=== PATIENT | male | born 1985 | race Caucasian/White ===

== ENCOUNTER 2019-10-02 13:14 | Emergency (ER) | payer SELFPAY ==
[~2019-10-02] VITALS: Ht 167.6 cm; Wt 68.0 kg
--- NOTE | 2019-10-02 13:20 | NUR ---
[id number] from streets, asking for ativan and water. pt is agitated while being triage. states "im dehydrated". to ER bed 9, hooked to monitor, awaiting MD doss.
--- NOTE | 2019-10-02 14:02 | NUR ---
DR RODRÍGUEZ AT BEDSIDE
[2019-10-02] MEDS ORDERED: clonazePAM 1 MG TABLET ONE (14:08)
[2019-10-02] MEDS ORDERED: LORAZEPAM 1 MG TABLET ONE ×2 (14:09→22:46)
[2019-10-02] MEDS ORDERED: PANTOPRAZOLE 40 MG TABLET.DR PO ONE ×2 (14:27→14:30)
[2019-10-02] MEDS ORDERED: clonazePAM 1 MG TABLET PO ONE (14:30)
[2019-10-02] MEDS ORDERED: OMEPRAZOLE 20 MG CAPSULE.DR PO ONE (14:30)
[2019-10-02] MEDS ORDERED: LORAZEPAM 1 MG TABLET PO ONE ×2 (14:30→23:00)
--- NOTE | 2019-10-02 14:46 | NUR ---
PATIENT REQUESTS FOR PAIN MEDICATION FOR R RIB, OFFERED PATIENT TORADOL 30MG IV, PATIENT REFUSED. PATIENT REQUESTES PERCOCET. MD REFUSES TO GIVE PATIENT PERCOCET.
--- NOTE | 2019-10-02 14:52 | NUR ---
security at bedside to assist patient outside facility
--- NOTE | 2019-10-02 14:57 | NUR ---
PATIENT THREATENED ER EMT, BECAME VERBALLY AND PHYSICALLY AGGRESSIVE. CALLED DAWNA GARCIA.
--- NOTE | 2019-10-02 14:59 | NUR ---
PATIENT DOES NOT WANT TO GO DESPITE SECURITY SPEAKING TO HIM, CALLED [employer].
--- NOTE | 2019-10-02 15:55 | NUR ---
[employer] AT BEDSIDE
[2019-10-02] MEDS ORDERED: LORAZEPAM INJ 2 MG/ML VIAL ONE (17:28)
[2019-10-02] MEDS ORDERED: LORAZEPAM INJ 2 MG/ML VIAL IM ONE (17:30)
--- NOTE | 2019-10-02 17:49 | NUR ---
PATIENT IN BED ASLEEP, EASILY AROUSABLE BY VOICE. HOOKED TO MONITOR, WILL CONTINUE TO MONITOR ACCORDINGLY.
--- NOTE | 2019-10-02 19:21 | NUR ---
PATIENT IN BED ASLEEP, EASILY AROUSABLE BY VOICE. HOOKED TO MONITOR, WILL CONTINUE TO MONITOR ACCORDINGLY.
--- NOTE | 2019-10-02 19:26 | NUR ---
REPORT GIVEN TO ANGELY MARCUS RN FOR SIMÓN
[2019-10-02] MEDS ORDERED: HYDROCODONE/APAP 5/325MG 1 EACH TABLET ONE (22:36)
[2019-10-02 22:50] VITALS: BP 119/79
--- NOTE | 2019-10-02 22:50 | NUR ---
Patient discharged to home in stable condition. Written and verbal after care instructions given. Patient verbalizes understanding of instruction.Pt ambulatory with a steady gait
[2019-10-02] MEDS ORDERED: HYDROCODONE/APAP 5/325MG 1 EACH TABLET PO ONE (23:00)
== END 2019-10-02 22:50 | disposition home or self-care (01) ==
LOC: EDBD 13:18 → ER 13:18
DX: F41.9 Anxiety disorder, unspecified (principal); F19.90 Other psychoactive substance use, unspecified, uncomplicated; F17.200 Nicotine dependence, unspecified, uncomplicated; Z88.1 Allergy status to other antibiotic agents; Z88.8 Allergy status to other drugs, medicaments and biological substances
CPT/HCPCS: 96372; 99285; J2060

== ENCOUNTER 2019-10-03 19:15 | Emergency (ER) | payer SELFPAY ==
[~2019-10-03] VITALS: Ht 167.6 cm; Wt 63.5 kg
[2019-10-03 19:22] VITALS: BP 138/88
[2019-10-03] MEDS ORDERED: clonazePAM 1 MG TABLET ONE (19:51)
[2019-10-03] MEDS ORDERED: HYDROCODONE/APAP 10/325MG 1 EA TABLET ONE (19:52)
[2019-10-03] MEDS ORDERED: LORAZEPAM 1 MG TABLET ONE (19:52)
[2019-10-03] MEDS ORDERED: clonazePAM 1 MG TABLET PO ONE (20:00)
[2019-10-03] MEDS ORDERED: HYDROCODONE/APAP 10/325MG 1 EA TABLET PO ONE (20:00)
[2019-10-03] MEDS ORDERED: LORAZEPAM 1 MG TABLET PO ONE (20:00)
--- NOTE | 2019-10-03 20:00 | NUR ---
Patient eloped from facility. ER MD notified.
== END 2019-10-03 20:02 | disposition left against medical advice (07) ==
LOC: ER 19:15
DX: M25.571 Pain in right ankle and joints of right foot (principal); R07.89 Other chest pain; R07.81 Pleurodynia; G89.29 Other chronic pain; R56.9 Unspecified convulsions; R45.1 Restlessness and agitation; Z88.1 Allergy status to other antibiotic agents; Z88.8 Allergy status to other drugs, medicaments and biological substances

== ENCOUNTER 2020-07-06 12:40 | Emergency (ER) | payer OTHER ==
[~2020-07-06] VITALS: Ht 170.2 cm; Wt 85.7 kg
[2020-07-06] MEDS ORDERED: LORAZEPAM 1 MG TABLET PO ONE (13:00)
[2020-07-06] MEDS ORDERED: LEVETIRACETAM (500MG) 500 MG in IV NS 0.9% 100 ML IV SCH (13:00)
[2020-07-06] MEDS ORDERED: LORAZEPAM 1 MG TABLET ONE (13:05)
--- NOTE | 2020-07-06 13:09 | NUR ---
senait, from [facility],patient states 'i had seizure x 2 this morning, missed my ativan and klonopin this morning, and c/o left rib pain. On room air, breathing evenly and unlabored. Connected tot he monitor and pulse ox. kept comfortable, will continue to monitor accordingly.
--- NOTE | 2020-07-06 13:17 | NUR ---
JORGE GARCIA AT BEDSIDE FOR EKG
--- NOTE | 2020-07-06 13:20 | NUR ---
PATIENT REFUSED KEPPRA 500MG IVNS 0.9% 100ML BAG, PATIENT STATES "I TOOK 1000MG KEPPRA THIS MORNING". MADE MD AWARE
[2020-07-06 13:23] LABS: BASOPHILS % (AUTO) 0.7 % (0.0-2.0); EOSINOPHILS % (AUTO) 3.3 % (0.0-6.0); HEMATOCRIT 41 % (39-51); HEMOGLOBIN 13.7 g/dL (13.5-17.5); LYMPHOCYTES # (AUTO) 1.6 /CMM (0.8-4.8); LYMPHOCYTES % (AUTO) 23.7 % (20.0-44.0); MEAN CORPUSCULAR HGB CONC 34 g/dl (31.0-36.0); MEAN CORPUSCULAR VOLUME 94 fL (80-96); MONOCYTES # (AUTO) 0.6 /CMM (0.1-1.30); MONOCYTES % (AUTO) 8.2 % (2.0-12.0); NEUTROPHILS # (AUTO) 4.3 /CMM (1.8-8.9); NEUTROPHILS % (AUTO) 64.1 % (43.0-81.0); PLATELET COUNT (AUTO) 149 /CMM (150-450); RED BLOOD CELL COUNT(AUTO) 4.35 MIL/uL (4.5-6.0); WHITE BLOOD COUNT (AUTO) 6.8 K/uL (4.3-11.0)
[2020-07-06 13:25] LABS: CALCIUM, SERUM 8.6 mg/dL (8.5-10.1); CREATININE 0.8 mg/dL (0.6-1.3); POTASSIUM 3.9 mmol/L (3.5-5.1)
[2020-07-06 14:44] VITALS: BP 122/61
--- NOTE | 2020-07-06 14:44 | NUR ---
patient discharge in custody accompanied by in no distress.
== END 2020-07-06 14:44 ==
LOC: ER 12:43
DX: S22.32XA Fracture of one rib, left side, initial encounter for closed fracture (principal); G40.909 Epilepsy, unspecified, not intractable, without status epilepticus; F10.10 Alcohol abuse, uncomplicated; F17.200 Nicotine dependence, unspecified, uncomplicated; Y90.0 Blood alcohol level of less than 20 mg/100 ml; Z02.89 Encounter for other administrative examinations; Z88.1 Allergy status to other antibiotic agents; Z88.8 Allergy status to other drugs, medicaments and biological substances; X58.XXXA Exposure to other specified factors, initial encounter; Y93.89 Activity, other specified; Y92.89 Other specified places as the place of occurrence of the external cause; Y99.8 Other external cause status
CPT/HCPCS: 36415; 71100; 80048; 80320; 84484; 85025; 93005; 99285; J7030; G0480; J1953

== ENCOUNTER 2020-09-30 06:30 | Emergency (ER) | payer OTHER ==
[~2020-09-30] VITALS: Ht 170.2 cm; Wt 93.9 kg
--- NOTE | 2020-09-30 06:38 | NUR ---
URINE COLLECTED, CALLED LAB FOR YARD ASSISTANT
--- NOTE | 2020-09-30 06:40 | NUR ---
PT FRANCISCO REQUESTING FOR MEDICATION REFILL. PT STATES "I JUST GOT OUT OF SENIOR LIVING YESTERDAY AND NEED MY MEDICATIONS. I ALSO NEED TO BE SENT TO A FACILITY BECAUSE I DON'T FEEL RIGHT." WHEN ASKED IF PATIENT IS SUICIDAL/HOMICIDAL PT STATES "I JUST NEED MY MEDS". PT AAOX4, CALM AND COOPERATIVE. RESPIRATIONS EVEN AND UNLABORED. VITAL SIGNS STABLE. AMBULATORY WITH STEADY GAIT. NO ACUTE DISTRESS NOTED AT THIS TIME. WILL CONTINUE TO MONITOR
--- NOTE | 2020-09-30 06:45 | NUR ---
AT BEDSIDE FOR EVAL
--- NOTE | 2020-09-30 06:55 | NUR ---
PT C/O SI WITH PLAN TO "TAKE MY FRIEND'S GUN AND SHOOT MYSELF". SUICIDAL PRECAUTIONS INITIATED. PT PLACED IN GOWN, BELONGINGS COLLECTED AND LOCKED IN PATIENT LOCKER. SITTER AT BEDSIDE. WLL CONTINUE TO MONITOR
[2020-09-30] MEDS ORDERED: clonazePAM 1 MG TABLET PO ONE (07:00)
[2020-09-30] MEDS ORDERED: PANTOPRAZOLE 40 MG TABLET.DR PO ONE ×2 (07:00→07:16)
[2020-09-30] MEDS ORDERED: DIVALPROEX SODIUM 500 MG TABLET.DR PO ONE ×2 (07:00→07:16)
[2020-09-30] MEDS ORDERED: LORAZEPAM 1 MG TABLET PO ONE ×2 (07:00→13:30)
--- NOTE | 2020-09-30 07:01 | NUR ---
TABLE TOP TILE SETTER AT BEDSIDE FOR BLOOD DRAW
[2020-09-30 07:16] LABS: BASOPHILS % (AUTO) 0.7 % (0.0-2.0); EOSINOPHILS % (AUTO) 1.4 % (0.0-6.0); HEMATOCRIT 42 % (39-51); HEMOGLOBIN 14.3 g/dL (13.5-17.5); LYMPHOCYTES # (AUTO) 1.4 /CMM (0.8-4.8); LYMPHOCYTES % (AUTO) 20.2 % (20.0-44.0); MEAN CORPUSCULAR HGB CONC 34 g/dl (31.0-36.0); MEAN CORPUSCULAR VOLUME 92 fL (80-96); MONOCYTES # (AUTO) 0.4 /CMM (0.1-1.30); MONOCYTES % (AUTO) 5.5 % (2.0-12.0); NEUTROPHILS # (AUTO) 5.1 /CMM (1.8-8.9); NEUTROPHILS % (AUTO) 72.2 % (43.0-81.0); PLATELET COUNT (AUTO) 187 /CMM (150-450); RED BLOOD CELL COUNT(AUTO) 4.58 MIL/uL (4.5-6.0)
[2020-09-30] MEDS ORDERED: clonazePAM 1 MG TABLET ONE (07:17)
[2020-09-30 07:25] LABS: BILIRUBIN,URINE NEGATIVE (NEGATIVE); COLOR,URINE YELLOW (YELLOW); LEUKOCYTE ESTERASE ,URINE NEGATIVE (NEGATIVE); NITRITE, URINE NEGATIVE (NEGATIVE); PH,URINE 7.5 (5.0-8.0); PROTEIN,URINE NEGATIVE (NEGATIVE); UGLUCOSE NEGATIVE (NEGATIVE); UROBILINOGEN,URINE 0.2 EU/dL (0.2)
[2020-09-30 07:33] LABS: CARBON DIOXIDE 28 mmol/L (21-32); CHLORIDE 103 mmol/L (98-107); CREATININE 0.8 mg/dL (0.6-1.3); GLUCOSE 99 mg/dL (74-106); POTASSIUM 3.7 mmol/L (3.5-5.1); SODIUM SERUM 140 mmol/L (136-145); UREA NITROGEN, BLOOD 13 mg/dL (7-18)
[2020-09-30 07:42] LABS: ALANINE AMINOTRANSFERASE 25 U/L (12-78); ALBUMIN 3.8 g/dL (3.4-5.0); ALKALINE PHOSPHATASE 82 U/L (46-116); ASPARTATE AMINOTRANSFERASE 27 U/L (15-37); BILIRUBIN,DIRECT 0.1 mg/dL (0.0-0.2); BILIRUBIN,TOTAL 0.5 mg/dL (0.2-1.0); TOTAL PROTEIN, SERUM 7.9 g/dL (6.4-8.2)
[2020-09-30 07:46] LABS: ACETAMINOPHEN < 10 ug/ml (10-30); ALCOHOL, BLOOD < 3 mg/dL (0-0)
--- NOTE | 2020-09-30 08:10 | NUR ---
THE PATIENT ALERT AND ORIENTED X4. DENIES ANY DISTRESS AT THIS TIME.
--- NOTE | 2020-09-30 09:47 | NUR ---
SPOKE TO JESSICA FROM [facility], WAITING ON FACESHEET AND COVID TEST RESULT. WILL SEND INFO ONCE COVID IS RESULTED.
--- NOTE | 2020-09-30 11:15 | NUR ---
Asphalt Patcher consult: Asphalt Patcher consult requested for patient with suicidal ideation. Patient is a 35-year-old, male. SW met with patient at his bedside in the emergency department. Patient was alert and oriented x4. Patient was sitting upright and eating his lunch. Per ED RN Ramon, clinicals were faxed to [facility] per patients request. Patient stated that he is currently living with his mother at [address] [place] [id number]; [phone]. Patient provided SW with contact information for his mother, Ruthy, . Patient stated that he was recently released from custodial and plans to go to a treatment center called, [facility] ([address] [place] [id number]; ) on 10/02/20. Patient stated that he is currently unemployed but receives income/support from his family and friends. Patient stated that he has a history of substance use which includes alcohol and heroin use. Patient stated that he recently had alcohol, two weeks ago and stated that he usually drinks around two bottles/day. Patient stated that his last heroin use was from seven months ago. SW assessed patients history of mental illness and patient stated that he has been diagnosed with Bipolar II Disorder. Patient was repeatedly asking for Ativan and stated that he needed the medication in order to go to the treatment center. Patient stated that he is currently experiencing visual hallucinations as evidenced by his statement, I am seeing dots. Patient denied current suicidal or homicidal ideation. SW offered patient substance use resources and patient declined the resources stating, I dont need them. SW discussed the patient with Dr. Barnard who stated that she was aware of the patients request for Ativan. Clinicals have been faxed by ED staffing administrator to [facility] for review. PLAN: Pending acceptance to [facility]. SW will remain available as needed.
--- NOTE | 2020-09-30 13:26 | NUR ---
Soft Drink Powder Mixer note: ADELE faxed clinicals with facesheet and updated COVID result to [facility], for review.
[2020-09-30] MEDS ORDERED: LORAZEPAM 1 MG TABLET ONE (13:31)
--- NOTE | 2020-09-30 13:58 | NUR ---
[facility]. THEY ARE REQUESTING TO TRANSFER PT AFTER 1430 AND TO CALL REPORT AT THAT TIME. NUMBER FOR REPORT [phone].
--- NOTE | 2020-09-30 14:46 | NUR ---
CALLED [facility] FOR TRANSPORT TO [facility]. ETA 30-45 MINUTES.
--- NOTE | 2020-09-30 14:52 | NUR ---
Report given to nurse May from [facility]
--- NOTE | 2020-09-30 15:22 | NUR ---
The patient is alert and oriented x4. Denies pain. In room air and denies SOB. Respiration regular and unlabored. The patient is discharge going to [facility] in stable conditon and via arranged transpo.
[2020-09-30 15:23] VITALS: BP 134/82
== END 2020-09-30 15:23 ==
LOC: ER 06:34
DX: F31.9 Bipolar disorder, unspecified (principal); Z02.2 Encounter for examination for admission to residential institution; G40.909 Epilepsy, unspecified, not intractable, without status epilepticus; Z88.1 Allergy status to other antibiotic agents; Z88.8 Allergy status to other drugs, medicaments and biological substances; Z20.822 Contact with and (suspected) exposure to COVID-19
CPT/HCPCS: 36415; 80048; 80076; 80143; 80307; 80320; 81003; 85025; 87426; 99285; C9803; G0480

== ENCOUNTER 2020-12-29 21:16 | Emergency (ER) | payer MEDICAID, OTHER ==
[~2020-12-29] VITALS: Ht 170.2 cm; Wt 95.3 kg
--- NOTE | 2020-12-29 23:15 | NUR ---
lab at bedside
--- NOTE | 2020-12-29 23:30 | NUR ---
covid swab sent to lab
[2020-12-29 23:32] LABS: BASOPHILS # (AUTO) 0.1 K/uL (0.0-0.2); BASOPHILS % (AUTO) 1.2 % (0.0-2.0); EOSINOPHILS % (AUTO) 6.5 % (0.0-6.0); HEMATOCRIT 46 % (39-51); HEMOGLOBIN 15.6 g/dL (13.5-17.5); LYMPHOCYTES # (AUTO) 2.7 K/uL (0.8-4.8); LYMPHOCYTES % (AUTO) 38.3 % (20.0-44.0); MEAN CORPUSCULAR HGB CONC 34 g/dl (31.0-36.0); MEAN CORPUSCULAR VOLUME 89 fL (80-96); MONOCYTES # (AUTO) 0.5 K/uL (0.1-1.30); MONOCYTES % (AUTO) 7.1 % (2.0-12.0); NEUTROPHILS # (AUTO) 3.3 K/uL (1.8-8.9); NEUTROPHILS % (AUTO) 46.9 % (43.0-81.0); PLATELET COUNT (AUTO) 209 K/uL (150-450); RED BLOOD CELL COUNT(AUTO) 5.16 MIL/uL (4.5-6.0)
--- NOTE | 2020-12-29 23:45 | NUR ---
PATIENT UNABLE TO PROVIDE URINE SAMPLE AT THIS TIME
--- NOTE | 2020-12-29 23:58 | NUR ---
URINE COLLECTED AND SENT TO LAB
[2020-12-30 00:01] LABS: CARBON DIOXIDE 23 mmol/L (21-32); CHLORIDE 102 mmol/L (98-107); CREATININE 1.1 mg/dL (0.6-1.3); GLUCOSE 89 mg/dL (74-106); POTASSIUM 3.5 mmol/L (3.5-5.1); SODIUM SERUM 139 mmol/L (136-145); UREA NITROGEN, BLOOD 18 mg/dL (7-18)
[2020-12-30 00:13] LABS: BILIRUBIN,URINE MODERATE (NEGATIVE); COLOR,URINE YELLOW (YELLOW); LEUKOCYTE ESTERASE ,URINE Negative (NEGATIVE); NITRITE, URINE Negative (NEGATIVE); PH,URINE 5.5 (5.0-8.0); PROTEIN,URINE 30 mg/dl (NEGATIVE); UGLUCOSE Negative (NEGATIVE); UROBILINOGEN,URINE 0.2 EU/dL (0.2)
[2020-12-30 00:14] LABS: BACTERIA,URINE Rare /HPF (None Seen); RBC,URINE NONE SEEN /HPF (0-2); SQUAMOUS EPITHELIAL CELL,UR Few /HPF (None Seen); WBC,URINE NONE SEEN /HPF (0-3)
[2020-12-30 00:18] LABS: ALANINE AMINOTRANSFERASE 16 U/L (12-78); ALBUMIN 3.8 g/dL (3.4-5.0); ALCOHOL, BLOOD < 3 mg/dL (0-0); ALKALINE PHOSPHATASE 86 U/L (46-116); ASPARTATE AMINOTRANSFERASE 16 U/L (15-37); BILIRUBIN,DIRECT 0.1 mg/dL (0.0-0.2); BILIRUBIN,TOTAL 0.3 mg/dL (0.2-1.0); TOTAL PROTEIN, SERUM 7.6 g/dL (6.4-8.2)
[2020-12-30 00:19] LABS: ACETAMINOPHEN < 2 ug/ml (10-30)
--- NOTE | 2020-12-30 01:34 | NUR ---
CALLED RIVER CROSSING SUPERVISOR ISRRAEL FOR PSYCH EVALUATION
--- NOTE | 2020-12-30 02:07 | NUR ---
called traffic maintenance officer and left voicemail.
--- NOTE | 2020-12-30 02:46 | NUR ---
CALLED DROP FORGER ISRRAEL FOR PSYCH EVAL. LEFT VOICEMAIL.
--- NOTE | 2020-12-30 03:10 | NUR ---
CALLED ANGELICA MAYORGA. NO ANSWER.
--- NOTE | 2020-12-30 03:29 | NUR ---
CALLED BOTTLER ISRRAEL. NO ANSWER, LEFT VOICEMAIL.
[2020-12-30] MEDS ORDERED: LORAZEPAM 1 MG TABLET PO ONE (04:00)
[2020-12-30] MEDS ORDERED: LORAZEPAM 1 MG TABLET ONE (04:02)
--- NOTE | 2020-12-30 04:59 | NUR ---
certified histologic technician eta 30min
--- NOTE | 2020-12-30 05:25 | NUR ---
note keeper at bedside
[2020-12-30] MEDS ORDERED: QUETIAPINE FUMARATE 100 MG TABLET PO SCH (06:00)
[2020-12-30] MEDS ORDERED: QUETIAPINE FUMARATE 100 MG TABLET ONE (06:20)
--- NOTE | 2020-12-30 06:46 | NUR ---
PULLED 300MG SEROQUEL FROM [facility], 100MG NOT IN STOCK IN ER
--- NOTE | 2020-12-30 09:41 | NUR ---
This SW faxed clinicals to [facility] [[address] [place] [address] FAX:[phone]] for voluntary psychiatric treatment.
--- NOTE | 2020-12-30 11:48 | NUR ---
PATIENT ACCEPTED AT [facility] UNDER DR. MCKEON. GIVE REPORT TO NURSING FIRST CALENDER WORKER WILLIAM [phone]
--- NOTE | 2020-12-30 11:58 | NUR ---
REPORT GIVEN TO NURSE LUCIA FROM [facility]
--- NOTE | 2020-12-30 12:16 | NUR ---
CALLED [facility] FOR TRANSPORT TO [facility]. ETA 25-30 MINUTES.
--- NOTE | 2020-12-30 13:12 | NUR ---
THE PATIENT IS TRANSFERED TO [facility] IN STABLE CONDITION VIA ARRANGED TRANSPO
[2020-12-30 13:18] VITALS: BP 138/82
== END 2020-12-30 13:18 ==
LOC: ER 21:29
DX: R45.851 Suicidal ideations (principal); F19.10 Other psychoactive substance abuse, uncomplicated; Z20.822 Contact with and (suspected) exposure to COVID-19; F31.9 Bipolar disorder, unspecified; G40.909 Epilepsy, unspecified, not intractable, without status epilepticus; R44.0 Auditory hallucinations; Z88.1 Allergy status to other antibiotic agents; Z88.8 Allergy status to other drugs, medicaments and biological substances
CPT/HCPCS: 36415; 80048; 80076; 80143; 80307; 80320; 81001; 85025; 87426; 99285; C9803; G0480

== ENCOUNTER 2021-01-25 13:02 | Emergency (ER) | payer MEDICAID ==
[~2021-01-25] VITALS: Ht 170.2 cm; Wt 83.9 kg
[2021-01-25 15:17] LABS: BASOPHILS # (AUTO) 0.1 K/uL (0.0-0.2); BASOPHILS % (AUTO) 0.7 % (0.0-2.0); HEMOGLOBIN 15.5 g/dL (13.5-17.5); LYMPHOCYTES # (AUTO) 2.1 K/uL (0.8-4.8); MEAN CORPUSCULAR VOLUME 90 fL (80-96); MONOCYTES # (AUTO) 0.7 K/uL (0.1-1.30); NEUTROPHILS # (AUTO) 7.2 K/uL (1.8-8.9); PLATELET COUNT (AUTO) 272 K/uL (150-450)
[2021-01-25 15:20] LABS: CARBON DIOXIDE 24 mmol/L (21-32); CHLORIDE 105 mmol/L (98-107); CREATININE 1.2 mg/dL (0.6-1.3); EOSINOPHILS % (AUTO) 1.4 % (0.0-6.0); GLUCOSE 132 mg/dL (74-106); HEMATOCRIT 46 % (39-51); LYMPHOCYTES % (AUTO) 20.2 % (20.0-44.0); MEAN CORPUSCULAR HGB CONC 34 g/dl (31.0-36.0); MONOCYTES % (AUTO) 6.9 % (2.0-12.0); NEUTROPHILS % (AUTO) 70.8 % (43.0-81.0); POTASSIUM 4.1 mmol/L (3.5-5.1); RED BLOOD CELL COUNT(AUTO) 5.07 MIL/uL (4.5-6.0); SODIUM SERUM 138 mmol/L (136-145); UREA NITROGEN, BLOOD 11 mg/dL (7-18); WHITE BLOOD COUNT (AUTO) 10.2 K/uL (4.3-11.0)
[2021-01-25 15:26] LABS: ACETAMINOPHEN < 10 ug/ml (10-30); ALANINE AMINOTRANSFERASE 14 U/L (12-78); ALBUMIN 3.7 g/dL (3.4-5.0); ALCOHOL, BLOOD < 3 mg/dL (0-0); ALKALINE PHOSPHATASE 100 U/L (46-116); ASPARTATE AMINOTRANSFERASE 10 U/L (15-37); BILIRUBIN,DIRECT 0.1 mg/dL (0.0-0.2); BILIRUBIN,TOTAL 0.2 mg/dL (0.2-1.0); TOTAL PROTEIN, SERUM 8.1 g/dL (6.4-8.2)
--- NOTE | 2021-01-25 15:28 | NUR ---
Patient came in to the er c/o depression, requesting clearance for scvn. On room air, breathing evenly and unlabored. Kept comfortable, will continue to monitor accordingly.
--- NOTE | 2021-01-25 16:00 | NUR ---
urine collected and sent to lab.
[2021-01-25 16:39] LABS: BILIRUBIN,URINE NEGATIVE (NEGATIVE); COLOR,URINE YELLOW (YELLOW); LEUKOCYTE ESTERASE ,URINE NEGATIVE (NEGATIVE); NITRITE, URINE NEGATIVE (NEGATIVE); PROTEIN,URINE NEGATIVE (NEGATIVE); UGLUCOSE NEGATIVE (NEGATIVE); UROBILINOGEN,URINE 0.2 EU/dL (0.2)
--- NOTE | 2021-01-25 23:32 | NUR ---
FAXED FACE SHEET AND CLINICALS TO [facility]
--- NOTE | 2021-01-26 00:16 | NUR ---
pt sitting quietly watching tv. vss
--- NOTE | 2021-01-26 01:30 | NUR ---
Patient is resting comfortably in bed with eyes closed. Easily aroused. VSS
--- NOTE | 2021-01-26 03:20 | NUR ---
pt sleeping, attached to monitor and pox. vss
--- NOTE | 2021-01-26 05:24 | NUR ---
pt sitting quietly watching tv. vss
[2021-01-26] MEDS: clonazePAM 1 MG TABLET PO ONE (15:00)
--- NOTE | 2021-01-26 15:17 | NUR ---
SS Note: ADELE spoke with [facility] regarding status of admission and they stated initial MD note did not state pt. was suicidal and pt. did not meet criteria for voluntary psych Tx. ADELE faxed updated clinicals with updated note as pt. is still claiming SI with plan to "run in front on a moving truck". Pt. is A&OX4 and compliant with interview. Pt. appears well-groomed and restless. Pt. stated he has not take his medications (Klonopin and Seroquel)for the last 24 hrs. Pt. requested said meds. ADELE notified Donta Mcmanus MD.
[2021-01-26] MEDS ORDERED: QUETIAPINE FUMARATE 25 MG TABLET ONE (16:24)
[2021-01-26] MEDS ORDERED: clonazePAM 1 MG TABLET ONE (16:26)
[2021-01-26] MEDS: QUETIAPINE FUMARATE 25 MG TABLET PO SCH (16:28)
[2021-01-26] MEDS ORDERED: DOXYCYCLINE HYCLATE (100 MG) 100 MG TABLET ONE (16:48)
[2021-01-26] MEDS ORDERED: IBUPROFEN 400 MG TABLET ONE (16:48)
[2021-01-26] MEDS: DOXYCYCLINE HYCLATE (100 MG) 100 MG TABLET PO ONE (16:50)
[2021-01-26] MEDS: IBUPROFEN 400 MG TABLET PO ONE (16:50)
--- NOTE | 2021-01-26 17:38 | NUR ---
call from david schroeder vn sejal, accepted to [facility] [address] under [place], report to [phone]
--- NOTE | 2021-01-26 17:47 | NUR ---
[facility] BLS TRANSPORT ETA 1830 TO [facility].
[2021-01-26 18:00] VITALS: BP 124/71
--- NOTE | 2021-01-26 19:00 | NUR ---
patient picked up by [facility] going to [facility] in no distress.
== END 2021-01-26 19:00 ==
LOC: ER 13:06
DX: F31.9 Bipolar disorder, unspecified (principal); R45.851 Suicidal ideations; Z82.49 Family history of ischemic heart disease and other diseases of the circulatory system; Z20.822 Contact with and (suspected) exposure to COVID-19; Z88.1 Allergy status to other antibiotic agents; Z88.8 Allergy status to other drugs, medicaments and biological substances; L02.412 Cutaneous abscess of left axilla; F12.90 Cannabis use, unspecified, uncomplicated; F15.90 Other stimulant use, unspecified, uncomplicated; F11.90 Opioid use, unspecified, uncomplicated; F13.90 Sedative, hypnotic, or anxiolytic use, unspecified, uncomplicated
CPT/HCPCS: 36415; 80048; 80076; 80143; 80307; 80320; 81003; 85025; 87426; 99285; C9803; G0480

== ENCOUNTER 2021-02-06 19:58 | Emergency (ER) | payer MEDICAID ==
[~2021-02-06] VITALS: Ht 170.2 cm; Wt 95.3 kg
--- NOTE | 2021-02-06 20:20 | NUR ---
PATIENT BIBSELF C/O UNABLE TO SLEEP, AND PAIN IN LEFT ANKLE, WITH BODY PAIN X 2 WEEKS SEEKING MEDICAL CLEARANCE. PATIENT IS A/O X 4, RR EVEN AND UNLABORED, NO SOB NOTED. PATIENT CONNECTED TO CARDIAC AND POX MONITOR.
--- NOTE | 2021-02-06 20:44 | NUR ---
verbal order norco 5-325mg po
[2021-02-06] MEDS ORDERED: clonazePAM 1 MG TABLET PO ONE ×3 (21:00→21:30)
[2021-02-06] MEDS ORDERED: clonazePAM 0.5 MG TABLET ONE ×2 (21:01→22:18)
[2021-02-06] MEDS ORDERED: clonazePAM 1 MG TABLET ONE (22:18)
--- NOTE | 2021-02-06 22:20 | NUR ---
KAMILA QUINTANA AND SENT TO LAB
[2021-02-06 22:40] LABS: BASOPHILS # (AUTO) 0.2 K/uL (0.0-0.2); BASOPHILS % (AUTO) 3.5 % (0.0-2.0); EOSINOPHILS % (AUTO) 8.4 % (0.0-6.0); HEMATOCRIT 42 % (39-51); HEMOGLOBIN 14.2 g/dL (13.5-17.5); LYMPHOCYTES % (AUTO) 31.7 % (20.0-44.0); MEAN CORPUSCULAR HGB CONC 34 g/dl (31.0-36.0); MEAN CORPUSCULAR VOLUME 91 fL (80-96); MONOCYTES # (AUTO) 0.5 K/uL (0.1-1.30); MONOCYTES % (AUTO) 7.9 % (2.0-12.0); NEUTROPHILS % (AUTO) 48.5 % (43.0-81.0); PLATELET COUNT (AUTO) 274 K/uL (150-450); RED BLOOD CELL COUNT(AUTO) 4.64 MIL/uL (4.5-6.0); WHITE BLOOD COUNT (AUTO) 6.2 K/uL (4.3-11.0)
[2021-02-06] MEDS ORDERED: HYDROCODONE/APAP 5/325MG TABLET ONE (22:41)
[2021-02-06 22:49] LABS: BILIRUBIN,URINE NEGATIVE (NEGATIVE); COLOR,URINE YELLOW (YELLOW); LEUKOCYTE ESTERASE ,URINE NEGATIVE (NEGATIVE); NITRITE, URINE NEGATIVE (NEGATIVE); PROTEIN,URINE NEGATIVE (NEGATIVE); UGLUCOSE NEGATIVE (NEGATIVE); UROBILINOGEN,URINE 0.2 EU/dL (0.2)
[2021-02-06] MEDS ORDERED: HYDROCODONE/APAP 5/325MG TABLET PO ONE (23:00)
[2021-02-06 23:07] LABS: CALCIUM, SERUM 8.8 mg/dL (8.5-10.1); CARBON DIOXIDE 28 mmol/L (21-32); CHLORIDE 100 mmol/L (98-107); CREATININE 1.1 mg/dL (0.6-1.3); GLUCOSE 78 mg/dL (74-106); POTASSIUM 3.4 mmol/L (3.5-5.1); SODIUM SERUM 136 mmol/L (136-145); UREA NITROGEN, BLOOD 22 mg/dL (7-18)
[2021-02-06 23:16] LABS: ALANINE AMINOTRANSFERASE 18 U/L (12-78); ALBUMIN 3.7 g/dL (3.4-5.0); ALKALINE PHOSPHATASE 90 U/L (46-116); ASPARTATE AMINOTRANSFERASE 23 U/L (15-37); BILIRUBIN,DIRECT 0.1 mg/dL (0.0-0.2); BILIRUBIN,TOTAL 0.4 mg/dL (0.2-1.0)
[2021-02-06 23:19] LABS: ACETAMINOPHEN < 10 ug/ml (10-30); ALCOHOL, BLOOD < 3 mg/dL (0-0)
[2021-02-07] MEDS ORDERED: QUETIAPINE FUMARATE 100 MG TABLET ONE (00:42)
--- NOTE | 2021-02-07 00:46 | NUR ---
FACESHEET AND CLINICALS FAXED TO [facility].
[2021-02-07] MEDS ORDERED: QUETIAPINE FUMARATE 100 MG TABLET PO SCH (01:00)
--- NOTE | 2021-02-07 01:46 | NUR ---
Patient is resting comfortably in bed with eyes closed. Easily aroused. VSS
--- NOTE | 2021-02-07 02:30 | NUR ---
pt awake sitting at edge of the bed, attached to monitor.
--- NOTE | 2021-02-07 03:20 | NUR ---
pt walks to restroom, needs met
--- NOTE | 2021-02-07 04:20 | NUR ---
pt awake. attached to monitor and pox.
[2021-02-07] MEDS ORDERED: NAPROXEN 250 MG TABLET PO ONE (06:00)
[2021-02-07] MEDS ORDERED: NAPROXEN 250 MG TABLET ONE (06:04)
--- NOTE | 2021-02-07 06:47 | NUR ---
[phone] MORIN
--- NOTE | 2021-02-07 06:53 | NUR ---
CALLED [facility] REGARDING TRANSPORTATION TO [facility]. ETA 0800
--- NOTE | 2021-02-07 06:54 | NUR ---
CALLED FOR REPORT, NOTED TO CALL BACK AFTER 0800 FOR REPORT.
[2021-02-07] MEDS ORDERED: PANTOPRAZOLE 40 MG TABLET.DR PO ONE ×2 (07:05→07:30)
[2021-02-07] MEDS ORDERED: clonazePAM 0.5 MG TABLET ONE ×2 (08:10→08:55)
--- NOTE | 2021-02-07 08:15 | NUR ---
Pt redirected. Verbally abusive, yelling at staff, threatening to kill staff and family. Pt is asking for all staff members names, states "I will kill you and piss on your grave, you don't know me i'm Azerbaijani and have Azerbaijani family members. I will cause problems for all you at the hospital." The patient was redirected to bed and medicated as ordered.
[2021-02-07 08:19] VITALS: BP 135/70
[2021-02-07] MEDS ORDERED: clonazePAM 1 MG TABLET PO ONE ×2 (08:30→09:00)
[2021-02-07] MEDS ORDERED: clonazePAM 1 MG TABLET ONE (08:55)
--- NOTE | 2021-02-07 08:58 | NUR ---
patient picked up by private ambulance going [place] [facility], report given to Jeremiah cabrera for alexi.
== END 2021-02-07 08:58 ==
LOC: ER 19:58
DX: R45.851 Suicidal ideations (principal); G47.00 Insomnia, unspecified; F31.9 Bipolar disorder, unspecified; R00.0 Tachycardia, unspecified; M25.572 Pain in left ankle and joints of left foot; Z20.822 Contact with and (suspected) exposure to COVID-19
CPT/HCPCS: 36415; 80048; 80076; 80143; 80307; 80320; 81003; 85025; 87426; 99285; C9803; G0480